=== PATIENT | male | born 1960 | race Caucasian/White ===

== ENCOUNTER 2016-08-31 08:43 | Emergency (ER) | payer MEDICAID | END 2016-08-31 10:24 | disposition home or self-care (01) | LOC: ER 08:43 | DX: S80.02XA Contusion of left knee, initial encounter (principal); S80.212A Abrasion, left knee, initial encounter; W01.0XXA Fall on same level from slipping, tripping and stumbling without subsequent striking against object, initial encounter; Y92.239 Unspecified place in hospital as the place of occurrence of the external cause; F17.210 Nicotine dependence, cigarettes, uncomplicated ==